=== PATIENT | female | born 1950 | race Caucasian/White ===

== ENCOUNTER 2018-12-01 14:49 | Emergency (ER) | payer BC, MEDICARE ==
--- NOTE | 2018-12-01 15:46 | PHYS DOC ---
Adult General Chief Complaint Chief Complaint: MULTIPLE COMPLAINTS HPI HPI Patient is a 68 year old female who presents to the ED today requesting MRI. Patient states she had a situation at [facility] 11 days ago. She states a cart fell on her 11 days. She states she was not able to move quickly enough when this cart fell over on het she states now she has right shoulder pain, neck pain, back pain, right lower extremity pain and wants MRI done. She states she just fired her doctor for not being on board with MRI. MDM Informed patient we do not do nonemergent MRI in the emergency room. Informed that there is no indication for her to need MRI right now. Patient stood up and left. Review of Systems Review of Systems Constitutional: Denies fever or chills [] Eyes: Denies change in visual acuity, redness, or eye pain [] HENT: Denies nasal congestion or sore throat [] Respiratory: Denies cough or shortness of breath [] Cardiovascular: No additional information not addressed in HPI [] GI: Denies abdominal pain, nausea, vomiting, bloody stools or diarrhea [] : Denies dysuria or hematuria [] Musculoskeletal: Reports neck pain, right shoulder pain, right lower extremity pain Integument: Denies rash or skin lesions [] Neurologic: Denies headache, focal weakness or sensory changes [] All other systems were reviewed and found to be within normal limits, except as documented in this note. Physical Exam Physical Exam Constitutional: Well developed, well nourished, no acute distress, non-toxic appearance. [] HENT: Normocephalic, atraumatic, bilateral external ears normal, oropharynx moist, no oral exudates, nose normal. [] Eyes: PERRLA, EOMI, conjunctiva normal, no discharge. [] Neck: Normal range of motion, no tenderness, supple, no stridor. [] Cardiovascular:Heart rate regular rhythm, no murmur [] Lungs & Thorax: Bilateral breath sounds clear to auscultation [] Abdomen: Bowel sounds normal, soft, no tenderness, no masses, no pulsatile masses. [] Skin: Warm, dry, no old bruising noted on the right forearm and right lower extremity Back: No tenderness, no CVA tenderness. [] Extremities: No tenderness, no cyanosis, no clubbing, ROM intact, no edema. [] Neurologic: Alert and oriented X 3, normal motor function, normal sensory function, no focal deficits noted. [] Psychologic: Affect normal, judgement normal, mood normal. [] EKG EKG [] Radiology/Procedures Radiology/Procedures [] Course & Med Decision Making Course & Med Decision Making Pertinent Labs and Imaging studies reviewed. (See chart for details) See history of present illness, patient comes to the ED requesting MRI of her shoulder, right lower extremity, neck, [facility]. Informed patient we do not do and the right for none emergent situations like hers. Recommended following up with the PCP, patient stood up and stated she fired the PCP and walked away. Dragon Disclaimer Dragon Disclaimer This electronic medical record was generated, in whole or in part, using a voice recognition dictation system. Departure Departure Impression: Primary Impression: Right shoulder pain Additional Impressions: Acute cervical sprain Right leg pain Disposition: 07 AGAINST MEDICAL ADVICE Condition: STABLE Problem Qualifiers Primary Impression: Right shoulder pain Chronicity: acute Qualified Codes: M25.511 - Pain in right shoulder Additional Impressions: Acute cervical sprain Encounter type: initial encounter Qualified Codes: S13.9XXA - Sprain of joints and ligaments of unspecified parts of neck, initial encounter KALPANA LAST APRN Dec 01, 2018 15:46
== END 2018-12-01 15:37 | disposition left against medical advice (07) ==
LOC: ER 14:49
DX: S13.9XXA Sprain of joints and ligaments of unspecified parts of neck, initial encounter (principal); M25.511 Pain in right shoulder; M79.604 Pain in right leg; M54.9 Dorsalgia, unspecified; W20.8XXA Other cause of strike by thrown, projected or falling object, initial encounter; Y93.89 Activity, other specified; Y92.89 Other specified places as the place of occurrence of the external cause; Y99.8 Other external cause status
CPT/HCPCS: 99281